=== PATIENT | male | born 1990 | race American Indian/Alaskan Native ===

== ENCOUNTER 2018-08-23 12:44 | Emergency (ER) | payer MEDICAID, OTHER ==
[2018-08-23 12:55] VITALS: BMI 26.5
[2018-08-23 12:59] VITALS: BP 123/64; PULSE 81; RESP 18; TEMP 100.3; O2SAT 96
--- NOTE | 2018-08-23 13:08 | C.PDOC ---
History Of Present Illness 28 year old male presents to the ED for evaluation of body aches, cough, and post-tussive emesis since two days. Patient reports he had a subjective fever last night. Patient has been taking [place] cough drops for his symptoms. He denies chest pain, shortness of breath abdominal pain, diarrhea. HPI: Influenza Time Seen by Provider: 08/23/18 13:01 Chief Complaint: Cough, Cold, Congestion History Per: Patient Exam Limitations: no limitations Onset/Duration Of Symptoms: Days (2) Symptoms include: fever (subjective ), cough, vomiting. denies: diarrhea Past Medical History Reviewed: Historical Data, Nursing Documentation, Vital Signs Vital Signs: Last Vital Signs Temp 100.3 F H 08/23/18 12:55 Pulse 81 08/23/18 12:55 Resp 18 08/23/18 12:55 BP 123/64 08/23/18 12:55 Pulse Ox 96 08/23/18 12:55 - Medical History PMH: Schizophrenia Denies: Diabetes, Hepatitis, HIV, HTN, Chronic Kidney Disease, Seizures, Sexually Transmitted Disease Surgical History: No Surg Hx - [facility] Procedures GROUP PSYCHOTHERAPY (02/02/16) INDIVIDUAL PSYCHOTHERAPY, SUPPORTIVE (02/02/16) Family History: States: Unknown Family Hx - Social History Hx Alcohol Use: Yes Hx Substance Use: Yes (weed) - Immunization History Hx Tetanus Toxoid Vaccination: No Hx Influenza Vaccination: No Hx Pneumococcal Vaccination: No Review Of Systems Constitutional: Positive for: Fever Cardiovascular: Negative for: Chest Pain Respiratory: Positive for: Cough. Negative for: Shortness of Breath Gastrointestinal: Positive for: Vomiting. Negative for: Abdominal Pain, Diarrhea Musculoskeletal: Positive for: Other (generalized body aches ) Physical Exam - Physical Exam Appears: Non-toxic Skin: Normal Color, Warm, Dry Head: Atraumatic, Normacephalic Eye(s): bilateral: Normal Inspection Ear(s): Bilateral: Normal Nose: Normal, No Discharge Oral Mucosa: Moist Throat: Normal, No Erythema, No Exudate Neck: Supple Chest: Symmetrical, No Deformity, No Tenderness Cardiovascular: Rhythm Regular, No Murmur Respiratory: Normal Breath Sounds, No Rales, No Rhonchi, No Wheezing Gastrointestinal/Abdominal: Soft, No Tenderness, No Guarding, No Rebound Extremity: Normal ROM, Capillary Refill (less than 2 seconds ) Neurological/Psych: Oriented x3, Normal Speech, Normal Cognition Medical Decision Making Medical Decision Making: Progress: On reassessment, patient is resting comfortably, showing no signs of distress a nd is stable for discharge. Patient will be treated with flu and is advised to follow up with PMD within 1-2 days for further evaluation. - ECG O2 Sat by Pulse Oximetry: 96 Disposition Counseled Patient/Family Regarding: Diagnosis, Need For Followup - Disposition Referrals: [facility] [Outside] [facility] [Outside] Disposition: HOME/ ROUTINE Disposition Time: 13:06 Condition: STABLE Additional Instructions: RYANN PRINGLE, thank you for letting us take care of you today. Your provider was Namita Fernando MD and you were treated for FEVER/COUGHING/VOMITING. The emergency medical care you received today was directed at your acute symptoms. If you were prescribed any medication, please fill it and take as directed. It may take several days for your symptoms to resolve. Return to the Emergency Department if your symptoms worsen, do not improve, or if you have any other problems. Please contact your doctor or call one of the physicians/clinics you have been referred to that are listed on the Patient Visit Information form that is included in your discharge packet. Bring any paperwork you were given at discharge with you along with any medications you are taking to your follow up visit. Our treatment cannot replace ongoing medical care by a primary care provider outside of the emergency department. Thank you for allowing the [facility] team to be part of your care today. If you had an X-Ray or CT scan: A Radiologist will review the ED reading if any change in treatment is needed we will contact you. If you had a blood, urine, or wound culture: It will take several days for the results, if any change in treatment is needed we will contact you. If you had an STI test: It will take 48 hours for the results. Please call after 1 week if you have not heard back. Prescriptions: Benzonatate [Tessalon Perles] 100 mg PO TID PRN #30 sgl PRN Reason: Cough Oseltamivir Phosphate [Tamiflu] 75 mg PO BID #10 capsule Instructions: Influenza (ED) Forms: [employer] ([place]), Work Excuse - POA Present On Arrival: None - Clinical Impression Clinical Impression: Influenza-like illness - Scribe Statement The provider has reviewed the documentation as recorded by the Scribe (Selam Romano) Provider Attestation: All medical record entries made by the Scribe were at my direction and personally dictated by me. I have reviewed the chart and agree that the record accurately reflects my personal performance of the history, physical exam, medical decision making, and the department course for this patient. I have also personally directed, reviewed, and agree with the discharge instructions and disposition.
== END 2018-08-23 13:36 | disposition home or self-care (01) ==
LOC: C.ER 12:44
DX: J11.1 Influenza due to unidentified influenza virus with other respiratory manifestations (principal); F17.210 Nicotine dependence, cigarettes, uncomplicated

== ENCOUNTER 2018-12-25 11:25 | Emergency (ER) | payer MEDICAID ==
[2018-12-25 11:25] VITALS: BMI 26.5
[2018-12-25 11:39] VITALS: BP 126/73; PULSE 72; RESP 20; TEMP 98.5; O2SAT 99
--- NOTE | 2018-12-25 12:27 | C.PDOC ---
History Of Present Illness 28 year old male presents to the emergency department with complaints of right groin bulging. Patient states that he was diagnosed with varicocele one year ago but never followed-up with a doctor. Patient states that he felt a bulge today and tried to "push it back in", and it went away. Patient has a history of manual labor, and states that the bulge happens "sometimes". Patient states that it has been happening more often. He denies pain, difficulty urinating, dysuria, decreased urinary output, bowel movement issues, abdominal pain, nausea, vomiting, fever and chills. Time Seen by Provider: 12/25/18 11:53 Chief Complaint (Nursing): Groin Pain History Per: Patient History/Exam Limitations: no limitations Onset/Duration Of Symptoms: Hrs Current Symptoms Are (Timing): Still Present Location Of Pain/Discomfort: Other (right groin) Quality Of Discomfort: Other (bulging). denies: "Pain" Associated Symptoms: denies: Fever, Chills, Nausea, Vomiting, Diarrhea, Loss Of Appetite, Urinary Symptoms Alleviating Factors: Other ("pushing back in") Past Medical History Reviewed: Historical Data, Nursing Documentation, Vital Signs Vital Signs: Last Vital Signs Temp 98.5 F 12/25/18 11:35 Pulse 72 12/25/18 11:35 Resp 20 12/25/18 11:35 BP 126/73 12/25/18 11:35 Pulse Ox 99 12/25/18 11:35 Primary Care Provider: Non [facility] Provider, - Medical History PMH: Schizophrenia Denies: Diabetes, Hepatitis, HIV, HTN, Chronic Kidney Disease, Seizures, Sexually Transmitted Disease Surgical History: No Surg Hx - [facility] Procedures GROUP PSYCHOTHERAPY (02/02/16) INDIVIDUAL PSYCHOTHERAPY, SUPPORTIVE (02/02/16) Family History: States: No Known Family Hx - Social History Hx Alcohol Use: Yes Hx Substance Use: Yes (weed) - Immunization History Hx Tetanus Toxoid Vaccination: No Hx Influenza Vaccination: No Hx Pneumococcal Vaccination: No Review Of Systems Except As Marked, All Systems Reviewed And Found Negative. Constitutional: Negative for: Fever, Chills, Weakness Cardiovascular: Negative for: Chest Pain Respiratory: Negative for: Cough, Shortness of Breath Gastrointestinal: Negative for: Nausea, Vomiting, Abdominal Pain, Diarrhea Genitourinary: Positive for: Other (groin bulging). Negative for: Dysuria, Frequency, Hematuria, Scrotal Pain Neurological: Negative for: Weakness, Numbness Physical Exam - Physical Exam Appears: Non-toxic, No Acute Distress Skin: Normal Color, Warm, Dry Head: Atraumatic, Normacephalic Neck: Normal, Supple Chest: Symmetrical Gastrointestinal/Abdominal: Soft, No Tenderness, No Guarding, No Rebound Male Genital: Normal Inspection, No Testicular Tenderness, No Testicular Swelling, No Inguinal Tenderness, No Inguinal Swelling, No Scrotal Swelling Extremity: Normal ROM Neurological/Psych: Oriented x3, Normal Speech, Normal Cognition ED Course And Treatment O2 Sat by Pulse Oximetry: 99 (RA) Pulse Ox Interpretation: Normal Disposition Counseled Patient/Family Regarding: Diagnosis, Need For Followup - Disposition Referrals: Magdiel Donnelly MD [Staff Provider] - [facility] [Outside] [facility] [Outside] Disposition: HOME/ ROUTINE Disposition Time: 12:25 Condition: GOOD Additional Instructions: RYANN PRINGLE, thank you for letting us take care of you today. Your provider was Namita Fernando MD and you were treated for ABD PAIN. The emergency medical care you received today was directed at your acute symptoms. Return to the Emergency Department if your symptoms worsen, do not improve, or if you have any other problems. Please contact your doctor or call one of the physicians/clinics you have been referred to that are listed on the Patient Visit Information form that is included in your discharge packet. Bring any paperwork you were given at discharge with you along with any medications you are taking to your follow up visit. Our treatment cannot replace ongoing medical care by a primary care provider outside of the emergency department. Thank you for allowing the [facility] team to be part of your care today. Instructions: Abdominal Hernia (DC), Groin Hernia (DC) Forms: [employer] (Scottish), General Discharge Instructions - POA Present On Arrival: None - Clinical Impression Clinical Impression: Hernia, Inguinal hernia - Scribe Statement The provider has reviewed the documentation as recorded by the Scribe (Stephon Davis) Provider Attestation: All medical record entries made by the Scribe were at my direction and personally dictated by me. I have reviewed the chart and agree that the record accurately reflects my personal performance of the history, physical exam, medical decision making, and the department course for this patient. I have also personally directed, reviewed, and agree with the discharge instructions and disposition.
== END 2018-12-25 12:38 | disposition home or self-care (01) ==
LOC: C.ER 11:25
DX: K40.90 Unilateral inguinal hernia, without obstruction or gangrene, not specified as recurrent (principal)